=== PATIENT | male | born 2000 | race Caucasian/White ===

== ENCOUNTER 2024-10-13 19:30 | Emergency (ER) | payer OTHER ==
[~2024-10-13] VITALS: Ht 182.8 cm; Wt 65.8 kg
[2024-10-13] MEDS ORDERED: Amoxicillin/Clavulanate Pota 875 MG TAB PO ONE (20:00)
[2024-10-13] MEDS ORDERED: IBUPROFEN 800 MG TAB PO ONE (20:05)
[2024-10-13] MEDS ORDERED: Acetaminophen/Oxycodone 5 MG/325 MG TABLET PO ONE (20:05)
[2024-10-13] MEDS ORDERED: Tdap Vaccine 0.5 ML SYR (Adult Vaccine) IM ONE (21:00)
[2024-10-13] MEDS ORDERED: PERCOCET 5-3251 EACH PO (21:02)
[2024-10-13] MEDS ORDERED: AMOX-CLAV 875-1 EACH PO (21:02)
== END 2024-10-13 21:12 | disposition home or self-care (01) ==
LOC: ED 19:30
DX: S81.831A Puncture wound without foreign body, right lower leg, initial encounter (principal); S81.032A Puncture wound without foreign body, left knee, initial encounter; S71.132A Puncture wound without foreign body, left thigh, initial encounter; W54.0XXA Bitten by dog, initial encounter; Y93.89 Activity, other specified; Y92.89 Other specified places as the place of occurrence of the external cause; Y99.0 Civilian activity done for income or pay